=== PATIENT | male | born 1985 | race Caucasian/White ===

== ENCOUNTER → 2017-05-21 | Day surgery (SDC) | payer OTHER ==
[2017-05-20 12:48] VITALS: BMI 30.8
[2017-05-21 07:44] VITALS: BP 137/79; TEMP 97.4
--- NOTE | 2017-05-21 09:14 | RAD ---
CERVICAL SPINE THREE VIEWS: History: 32-year-old male with chronic herniated nucleus pulposus. FINDINGS: Neutral, flexion, and extension standing lateral views of the cervical spine are performed. Disc ost eophytosis, particularly at C5-6. Generalized facet arthrosis. No prevertebral soft tissue swelling. No abnormal translation between flexion and extension. IMPRESSION: Cervical spondylosis most prominent at C5-6. POS: [facility]
--- NOTE | 2017-05-21 09:53 | RAD ---
CERVICAL MYELOGRAM: Date: 05-21-17 Comparison: None. History: Cervical herniated nucleus pulposus, cervical radiculopathy, bilateral arm pain, numbness a nd shoulder pain. FINDINGS: Government Property Inspector radiographs of the lumbar spine demonstrate five lumbar type vertebral bodies with normal vert ebral body height and alignment. Informed consent for cervical spine myelogram obtained prior to the procedure. The ergonomics technician cervical spine imaging is dictated in a separate cervical spine radiograph series. Skin overlying the lumbar spine is prepped and draped in normal sterile fashion. Skin overlying the L3-4 level was anesthetized with 1% buffered Lidocaine. With intermittent fluoroscopic guidance, a 2 2 gauge spinal needle is advanced into the thecal sac and removal of the stylet yields clear cerebra l spinal fluid. Subsequently, approximately 10 cc of Isovue 300M was injected, filling the thecal sa c and outlining nerve roots of the cauda equina. Needle was removed. The patient's head was tilted d own to extend the contrast media into the cervical spine. Once the contrast media was visualized in the cervical spine, the patient was sent to the CT scanner for CT myelogram. IMPRESSION: Successful cervical myelogram prior to CT cervical myelogram. POS: [facility]
--- NOTE | 2017-05-21 10:02 | CT ---
CT MYELOGRAM OF THE CERVICAL SPINE: Date: 05-21-17 Comparison: None. History: Neck pain, bilateral shoulder pain, bilateral upper extremity numbness, pain, and tingling. Technique: Following the intrathecal administration of iodinated contrast media, axial CT imaging at 2.5 mm intervals obtained from the skull base through the lung apices. Coronal and sagittal reforma tted imaging obtained. FINDINGS: The imaged lung apices are unremarkable. The craniocervical junction, atlantoaxial interspace, cervicothoracic junction, occipital condyles, and C1-2 articulation are normal. C2-3: Unremarkable. C3-4: Mild disc space narrowing. Minimal disc bulge. No associated central canal or neural foraminal stenosis. Minimal right sided uncal vertebral osteophyte formation. C4-5: No central canal or neural foraminal stenosis. C5-6: There is disc space narrowing with posterior osteophyte formation and mild disc bulge. There i s anterior osteophyte as well. There is partial effacement of the ventral thecal sac with mild centr al canal stenosis. There is mild bilateral uncal vertebral osteophyte formation, right greater than left. There is mild right sided neural foraminal stenosis. C6-7: Mild disc space narrowing. Mild right sided uncal vertebral osteophyte formation. No significa nt central canal or neural foraminal stenosis. C7-T1: No significant central canal or neural foraminal stenosis. There is mild superior endplate irregularity involving the T2 and T3 vertebral bodies suggesting rem ote superior endplate fractures. IMPRESSION: 1. Cervical spine degenerative change, most significant at the C5-6 region, right greater than left. 2. Old superior endplate fractures with mild vertebral body height loss noted at T2 and T3. POS: [facility]
== END ==
LOC: RAD 06:58
PROVIDERS: ATTEND Neurological Surgery
PROC: B00B1ZZ Plain Radiography of Spinal Cord using Low Osmolar Contrast (ICD-10-PCS; principal; 2017-05-21)
DX: M50.20 Other cervical disc displacement, unspecified cervical region (principal); M54.12 Radiculopathy, cervical region
CPT/HCPCS: 62302; 72040; 72126